=== PATIENT | male | born 1975 | race Caucasian/White ===

== ENCOUNTER → 2018-04-17 | Outpatient (CLI) | payer BC ==
--- NOTE | 2018-04-18 15:09 | MR ---
EXAMINATION TYPE: MR cervical spine wo con DATE OF EXAM: 04/17/2018 COMPARISON: None HISTORY: Neck and rt shoulder pain, tingling, spasms x 3 mos, injured neck on trampoline TECHNIQUE: Multiplanar, multisequence images of the cervical spine were acquired. C2-C3: No evidence for degenerative disc disease. No disc bulge/herniation or protrusion. No Canal stenosis. Foramina are patent bilaterally. C3-C4: Minimal broad-based disc bulge causes slight anterior mass effect on the thecal sac and extend s towards the left causing slight foraminal encroachment. C4-C5: No evidence for degenerative disc disease. No disc bulge/herniation or protrusion. No Canal stenosis. Foramina are patent bilaterally. C5-C6: Posterior broad-based disc bulge is present causing mild anterior mass effect on the thecal sa c, lateral extension endplate disc complex towards the right causes some minimal foraminal encroachme nt. C6-C7: There is a posterior broad-based disc bulge causing mild anterior mass effect on the thecal sa c, no significant central stenosis or foraminal encroachment. C7-T1: No evidence for degenerative disc disease. No disc bulge/herniation or protrusion. No Canal stenosis. Foramina are patent bilaterally. Cervical segments are intact. There is normal alignment. Cervical spinal cord is of normal signal. Craniovertebral junction relationships are within normal limits. There is mild spondylosis present at C5-6, some mild loss of disc height, disc signal compatible disc desiccation and degenerative disc disease at the intervertebral levels. IMPRESSION: Mild degenerative disc disease.
== END | disposition home or self-care (01) ==
LOC: RADMRIMAIN 14:53
PROVIDERS: ATTEND Family Medicine
DX: M50.322 Other cervical disc degeneration at C5-C6 level (principal)
CPT/HCPCS: 72141

== ENCOUNTER → 2023-10-04 | Outpatient (CLI) | payer BC ==
--- NOTE | 2023-10-04 15:11 | P.SLEEP ---
History of Present Illness DATE: 10/04/2023 CONSULTATION/NEW PATIENT EVALUATION HISTORY OF PRESENT ILLNESS/SLEEP-WAKE EVALUATION: 48 year old gentleman had be en evaluated in the sleep center for possible obstructive sleep apnea hypopnea syndrome. Patient had sleep study about 20 years ago and it was borderline, patient did not get any treatment. SLEEP SCHEDULE: Usually sleep schedule from 4 AM until 11 AM on weekdays and until noon on weekends. FALLING ASLEEP: No problems with falling asleep. DURING SLEEP: Patient has loud snoring, witnessed episodes of stop breathing during the sleep. Patient wakes up from sleep with choking, gasping for air, heartburn, restless leg symptoms up to 3 times during the night is up to 2 episodes of nocturia. No history of hypnogogical hallucinations, sleep paralysis, or cataplexy. DURING THE DAY/WAKE STATE: Patient wake up tired, falling asleep during the day, has problems with memory and claustrophobia. [place] sleepiness scale is 4. Patient may take naps at 7 PM. PAST MEDICAL HISTORY: Hyperlipidemia, acid reflux, hypothyroidism, colon rupture, asthma. PAST SURGICAL HISTORY: Resection of colon with colostoma,: colostoma have been reversed. MEDICATIONS: Omeprazole, levothyroxine 225 g once a day. SOCIAL HISTORY: Marijuana user, alcohol consumption occasional. FAMILY HISTORY: Hypertension, heart problems, stroke, cancer, diabetes. REVIEW OF SYSTEMS: Loud snoring, witnessed episodes of stop breathing during sleep, multiple awakenings from sleep. No fevers. No double vision. No recent chest pain. No shortness of breath. No abdominal pain. No bleeding episodes. No blood in urine. No seizure episodes. PHYSICAL EXAMINATION: GENERAL: A pleasant patient without any distress. VITAL SIGNS: BP 121/83 , HR 85 , RR 16 , weight 301.4 pounds, height 6 foot 1 inches, body mass index 39.7 . HEENT: PERRLA, EOMI. Evaluation of oropharynx showed tongue protrudes midline, low position of soft palate Mallampati 3. NECK: Supple. No JVD. Thyroid is not palpable. 19 inches in circumference. LUNGS: Clear to percussion and to auscultation. Good air exchange. No wheezing or rhonchi. HEART: S1, S2 regular. No murmurs, gallops or rubs. ABDOMEN: Soft and nontender. Bowel sounds are present. No organomegaly appreciated. EXTREMITIES: No clubbing or cyanosis. THREAD WINDER AUTOMATIC: Awake, alert, and oriented x3. Cranial nerves 2 to 7 intact. There is no fasciculation or atrophy noted. No focal deficits observed. ASSESSMENT: 1. Loud snoring, witnessed episodes of stop breathing during the sleep, low position of soft palate Mallampati 3, wide neck 19 inches in circumference. Obstructive sleep apnea hypopnea syndrome. 2. Obesity, body mass index 39.7. 3. History of asthma. 4. Acid reflux. 5 hypothyroidism. 6 . Status post the colon resection for rupture. PLAN: 1. Home sleep apnea test for evaluation of patient's breathing during sleep. 2. CPAP/BiPAP titration if sleep study confirms obstructive sleep apnea- hypopnea syndrome. 3. Preferable position during sleep on the side. 4. No driving if patient feels any sleepiness. Patient is aware of civil and criminal liability for unsafe driving. 5. Sleep hygiene with regular sleep time for at least 7.5-8 hours. 6. Watching and losing weight. Thank you very much for referring this patient for consultation. Sincerely, Dilan Corado MD, PhD, FAASM. Diplomat of [place] [employer], Sleep Medicine Board by [place] [employer] [place] [employer] Mechanical Field Engineer of [facility] [place] Sleep Note - Sleep Note Sleep Note: Temperature: Pulse Rate: Respiratory Rate: Blood Pressure: SpO2: Height: Weight: BMI: Neck Circumference:
== END ==
LOC: 3 N SLEEP 14:38
PROVIDERS: ATTEND Internal Medicine
DX: G47.33 Obstructive sleep apnea (adult) (pediatric) (principal); E66.9 Obesity, unspecified; J45.909 Unspecified asthma, uncomplicated; K21.9 Gastro-esophageal reflux disease without esophagitis; F12.90 Cannabis use, unspecified, uncomplicated; E03.9 Hypothyroidism, unspecified; Z98.890 Other specified postprocedural states; Z90.49 Acquired absence of other specified parts of digestive tract; Z68.39 Body mass index [BMI] 39.0-39.9, adult; Z79.890 Hormone replacement therapy
CPT/HCPCS: 99211

== ENCOUNTER → 2023-10-11 | Outpatient (CLI) | payer BC ==
--- NOTE | 2023-10-12 17:09 | P.PCN ---
Description of Procedure: CLINICAL: A home sleep apnea test has been done for confirmation of possible obstructive sleep apnea-hypopnea syndrome. DESCRIPTION OF PROCEDURE: RESULTS: Recording time was 6 hours 57 minutes. Evaluation time was 5 hours 26 minutes. Evaluation time is sufficient for making conclusion about results of the test. Raw data of sleep recording has been reviewed and is adequate. Respiratory channel showed 197 apneas and 150 hypopneas. Apnea-hypopnea index was 63.7 per hour. Pulse rate in the range between minimum 41, maximum 208, average 84 by computer calculation. Lowest desaturation was 62%. IMPRESSION: 1. Extremely Severe Obstructive Sleep Apnea Hypopnea Syndrome with severe oxygen desaturation. Please see other impressions from consultation. PLAN: 1. The patient should have PAP titration for correction of respiratory abnormallities during sleep. 2. Preferable position during the sleep on the side. 3. Watching and losing weight. 4. Sleep hygiene with regular time in bed for at least 8 hours. 5. No driving if feeling any sleepiness. Thank you very much for allowing me to participate in the management of your patient. Sincerely, Dilan Corado MD, PhD, FAASM Diplomat of [place] [employer] Sleep Medicine Board of [employer] Manager Privacy of [facility] [place]
== END ==
LOC: 3 N SLEEP 15:33
PROVIDERS: ATTEND Internal Medicine
DX: G47.33 Obstructive sleep apnea (adult) (pediatric) (principal); G47.36 Sleep related hypoventilation in conditions classified elsewhere

== ENCOUNTER 2024-02-13 19:30 | Outpatient (CLI) | payer BC ==
--- NOTE | 2024-02-14 10:44 | P.PCN ---
Description of Procedure: CLINICAL: Titration with positive air pressure has been done for correction of respiratory abnormalities during sleep. DESCRIPTION OF PROCEDURE: The standard montage for clinical polysomnography included the electroencephalogram, the electrocardiogram, the mentalis surface electromyography and Lead II cardiography. The respiratory battery consisted of measurements of nasal /buccal air flow, pressure transducer measurements from the nose, thoracic and /or abdominal effort and intercostal surface electromyography. Video monitoring has been done to check for any parasomnia events. Nocturnal oxyhemoglobin saturations were obtained by finger oximetry. Step-cervantes titration with positive airway pressure was utilized to control respiratory events. Raw data of sleep recording has been reviewed and is adequate. RESULTS: Sleep efficiency was normal 92.4%. Latency to sleep onset was normal 8.0 minutes.]. Sleep architecture showed stage N1 extremely short 0.5%, Delta sleep was normal 18.3%, REM sleep was significantly increased to 40.7%. Heart rate was minimum 78 BPM, maximum 87 BPM, average 82 BPM. EMG showed 0 periodic limb movements per hour . PAP titration have been done with CPAP up to the pressure 17 cm H2O. . The best results were at the pressure 14 cm H2O. Apnea hypopnea index reduced to 1.6. IMPRESSION: 1. Obstructive sleep apnea hypopnea syndrome on controle with PAP treatment. 2. No significant periodic limb movements have been documented. Please see other impressions from consultation. PLAN: 1. The patient will have treatment with positive air pressure equipment with the level of pressure AutoPAP 6-17 cm H2O and should use it every night for the whole night. 2. Watching and losing weight. 3. Sleep hygiene with regular time in bed for at least 8 hours. 4. No driving if feeling any sleepiness. 5. I will see the patient for follow up visit to explain the results of the test, recommendations, check compliance with treatment and make any necessary adjustment related to mask fitting, pressure and humidification. Thank you very much for allowing me to participate in the management of your patient. Sincerely, Dilan Corado MD, PhD, FAASM Diplomat of [employer] Sleep Medicine Board of [place] [employer] Party Planner of [facility] [place]
== END 2024-02-14 04:50 | disposition home or self-care (01) ==
LOC: 3 N SLEEP 19:30
PROVIDERS: ATTEND Internal Medicine
DX: G47.33 Obstructive sleep apnea (adult) (pediatric) (principal)
CPT/HCPCS: 95811

== ENCOUNTER → 2024-05-08 | Outpatient (CLI) | payer BC ==
[2024-05-08 15:47] VITALS: BP 121/82; PULSE 82; RESP 16; TEMP 97.8
--- NOTE | 2024-05-08 16:20 | P.PROGSL ---
Subjective DATE: 05/08/2024 FOLLOW UP VISIT. Patient with obstructive sleep apnea hypopnea syndrome return to sleep center for follow-up visit. Recently patient had sleep study which documented obstructive sleep apnea hypopnea syndrome. Patient was initiated on PAP therapy and today is first visit after treatment was started. Patient was able to use PAP equipment every night for the whole night. Patient sleeps better and feels better during the day after starting to use CPAP equipment. The patient does not have significant problems with the mask, PAP pressure and humidification. [place] sleepiness scale is 4, which is normal. I checked information from PAP unit. PAP unit pressure 6-17, average 12.9 cm H2O. Usage is 100% and 70% for more then 4 hours, average 4.2 hours per night. Leak is increased to 39.4 l/m, patient is using fullface mask and has ng and mustache. Apnea Hypopnea Index is 3.3, which is normal. MEDICATIONS: Please see below During physical exam: GENERAL: A pleasant patient without any distress. VITAL SIGNS: Please see below, weight 298 pounds. HEENT: PERRLA, EOMI.low position of soft palate, Mallapati 3. NECK: Supple. No JVD. LUNGS: Clear to percussion and to auscultation. Good air exchange. No wheezing or rhonchi. HEART: S1, S2 regular. ABDOMEN: Soft and nontender. Obese EXTREMITIES: No clubbing or cyanosis. BRAKE LINER: Awake, alert, and oriented x3. No focal deficit. Impressions: 1. Severe obstructive sleep apnea-hypopnea syndrome with apnea hypopnea index 63.7. Patient demonstrated great compliance with treatment, benefiting from treatment. Normal respiration on CPAP. 2. Obesity. 3. History of asthma. 4. Acid reflux. 5. Hypothyroidism. 6. Status post colon resection for rupture. Plan: 1. Continue using PAP equipment every night for the whole night. 2. To change air filter at least 1-2 times per month. 3. PAP unit should stay lower then position of the head. 4. Advised patient to remove all remaining water from humidifier canister daily and make it dry after each usage. Refill canister with fresh distilled water before each usage. 5. Sleep hygiene with regular time in bed for at least 8 hours. 6. Precautions related to driving. No driving if feel any sleepiness. 7. I will maintain prescription for PAP supplies including mask, tube, filters. 8. Follow up visit in 6 months or earlier if patient has any problems. 9. Watching and losing weight. Thank you very much for allowing me to participate in the management of your patient. Dilan Corado MD, PhD, FAASM. Diplomat of [place] [employer], Sleep Medicine Board by [place] [employer] Senior Application Programmer of [facility] [place] Objective - Vital Signs Vital Signs: Vital Signs Temp 97.8 F 05/08/24 15:45 Pulse 82 05/08/24 15:45 Resp 16 05/08/24 15:45 BP 121/82 05/08/24 15:45 Pulse Ox 95 05/08/24 15:45 FiO2 Intake & Output 05/07/24 05/08/24 05/08/24 18:59 06:59 18:59 Weight 135.171 kg
== END ==
LOC: 3 N SLEEP 15:25
PROVIDERS: ATTEND Internal Medicine
CPT/HCPCS: 99212